=== PATIENT | male | born 1965 | race Caucasian/White ===

== ENCOUNTER 2018-10-31 13:27 | Emergency (ER) | payer OTHER ==
[~2018-10-31] VITALS: Ht 160 cm; Wt 61.5 kg
[2018-10-31 15:06] VITALS: BP 159/99
== END 2018-10-31 15:06 | disposition home or self-care (01) ==
LOC: ED 13:27
DX: S41.112A Laceration without foreign body of left upper arm, initial encounter (principal); X58.XXXA Exposure to other specified factors, initial encounter; Y93.89 Activity, other specified; Y92.89 Other specified places as the place of occurrence of the external cause; Y99.8 Other external cause status
CPT/HCPCS: 90715; J2001